=== PATIENT | male | born 2000 | race Caucasian/White ===

== ENCOUNTER 2021-04-15 23:45 | Inpatient (IN) | payer MEDICAID ==
[~2021-04-15] VITALS: Ht 170.2 cm; Wt 93.9 kg
[2021-04-16] VITALS (79 sets, daily range): BP systolic 97–140; BP diastolic 58–92
[2021-04-16] MEDS ORDERED: NALOXONE HCL 1 MG/ML 2ML VIAL IV ONE
[2021-04-16] MEDS ORDERED: PIPERACILLIN/TAZ 3.375G PREMIX 50 ML IV ONE (00:15)
[2021-04-16] MEDS ORDERED: NALOXONE HCL 0.4 MG/ML 1ML VIAL IV ONE (00:15)
[2021-04-16] MEDS ORDERED: SODIUM CHLORIDE 0.9% 1000ML BAG (SEPSIS BOLUS) IV ONE (00:15)
[2021-04-16] MEDS ORDERED: SUCCINYLCHOLINE CHLORIDE 200MG/10ML IV ONE ×2 (00:15→10:07)
[2021-04-16] MEDS ORDERED: PROPOFOL 10MG/ML 100ML 100 ML IV SCH (00:15)
[2021-04-16] MEDS ORDERED: ETOMIDATE 2MG/ML 10ML VIAL IV ONE ×2 (00:15→10:07)
[2021-04-16] MEDS ORDERED: VANCOMYCIN 1 G PREMIX 200 ML IV ONE (00:15)
[2021-04-16 01:11] LABS: BG BASE EXCESS -0.3 mmol/L (-2.0-2.0); BG CARBOXYHEMOGLOBIN 0.3 % (0.5-1.5); BG DEOXYHEMOGLOBIN 1.1 % (0.0-5.0); BG FRACTION INSPIRED OXYGEN 50; BG HCO3 ACT 23.8 mmol/L (22.0-26.0); BG METHEMOGLOBIN 0.3 % (0.0-1.5); BG OXYGEN SATURATION 98.9 % (92.0-98.5); BG OXYHEMOGLOBIN 98.3 % (94.0-97.0); BG PCO2 37.2 mmHg (35.0-45.0); BG PH 7.424 (7.350-7.450); BG PO2 183.6 mmHg (75.0-100.0); BG SAMPLE SITE RIGHT RADIAL; BG TOTAL HEMOGLOBIN 12.3 g/dL (12.0-18.0)
[2021-04-16 01:11] LABS: CHLORIDE 116 mEq/L (98-107); CREATINE KINASE 229 IU/L (39-308); ETHANOL BLOOD 159 mg/dL; RED BLOOD CELL COUNT 5.21 mill/uL (4.7-6.1)
[2021-04-16 01:12] LABS: HEMATOCRIT. 47.9 % (42.0-52.0); MEAN CORPUSCULAR HEMOGLOBIN 30.8 pg (28.0-32.0); MEAN PLATELET VOLUME 8.9 fl (7.4-10.4); NEUTROPHILS % 77.8 % (40.0-76.0); PLATELET 221 x1000/uL (130-400); RED CELL DISTRIBUTION WIDTH 14.4 % (11.6-14.6)
[2021-04-16 01:13] LABS: BASOPHILS % 0.4 % (0.0-2.0); EOSINOPHILS % 0.5 % (0.0-5.0); MONOCYTES % 7.3 % (2.0-8.0)
[2021-04-16 01:17] LABS: CLARITY URINE CLEAR (CLEAR); COLOR URINE YELLOW (YELLOW)
[2021-04-16 01:18] LABS: KETONES URINE NEGATIVE (NEGATIVE); LEUKOCYTE ESTERASE URINE NEGATIVE (NEGATIVE); NITRITE URINE NEGATIVE (NEGATIVE); OCCULT BLOOD URINE 1+ (NEGATIVE); PROTEIN URINE 2+ (NEGATIVE); SPECIFIC GRAVITY URINE 1.013 (1.005-1.030); UROBILINOGEN URINE 0.2 E.U./dL (0.2-1.0)
[2021-04-16 01:24] LABS: PROTHROMBIN TIME 11.1 sec (9.6-11.0)
[2021-04-16 01:28] LABS: *AMPHETAMINES SCREEN URINE NEGATIVE (NEGATIVE); *BARBITURATES SCREEN URINE NEGATIVE (NEGATIVE); *BENZODIAZEPINES SCREEN URINE NEGATIVE (NEGATIVE); *COCAINE SCREEN URINE NEGATIVE (NEGATIVE); METHADONE URINE SCREEN NEGATIVE (NEGATIVE)
[2021-04-16 01:29] LABS: CANNABINOID URINE SCREEN PRESUMTIVE POSITIVE (NEGATIVE); OPIATES URINE SCREEN NEGATIVE (NEGATIVE); PHENCYCLIDINE URINE SCREEN NEGATIVE (NEGATIVE)
[2021-04-16 01:57] LABS: BG VENT MODE VENT - AC
[2021-04-16] MEDS: FENTANYL CITRATE 2,500 MCG in SODIUM CHLORIDE 0.9% 200 ML IV PRN (02:21)
[2021-04-16] MEDS ORDERED: ONDANSETRON HCL 4MG/2ML INJ IV PRN (04:15)
[2021-04-16] MEDS ORDERED: PROPOFOL 10MG/ML 100ML 100 ML IV PRN (04:15)
[2021-04-16 04:36] LABS: BG BASE EXCESS -6.9 mmol/L (-2.0-2.0); BG CARBOXYHEMOGLOBIN 0.4 % (0.5-1.5); BG DEOXYHEMOGLOBIN 0.6 % (0.0-5.0); BG FRACTION INSPIRED OXYGEN 100; BG HCO3 ACT 18.6 mmol/L (22.0-26.0); BG METHEMOGLOBIN 0.5 % (0.0-1.5); BG OXYGEN SATURATION 99.4 % (92.0-98.5); BG OXYHEMOGLOBIN 98.5 % (94.0-97.0); BG PCO2 37.6 mmHg (35.0-45.0); BG PH 7.313 (7.350-7.450); BG PO2 246.4 mmHg (75.0-100.0); BG SAMPLE SITE LEFT BRACHIAL; BG VENT MODE VENT - AC
[2021-04-16] MEDS: PROPOFOL 10MG/ML 100ML 100 ML IV PRN ×6 (05:43→21:12)
[2021-04-16] MEDS: DEXT 5%/0.45% NACL KCL 20MEQ/L 1,000 ML IV SCH ×3 (05:44→21:49)
[2021-04-16 05:56] LABS: BASOPHILS % 0.1 % (0.0-2.0); HEMATOCRIT. 43.8 % (42.0-52.0); HEMOGLOBIN. 14.6 g/dL (14.0-18.0); LYMPHOCYTES % 12.2 % (20.0-50.0); MEAN CORPUSCULAR HEMOGLOBIN 30.4 pg (28.0-32.0); MEAN CORPUSCULAR VOLUME 91.4 fL (80.0-94.0); MEAN PLATELET VOLUME 8.6 fl (7.4-10.4); MONOCYTES % 8.8 % (2.0-8.0); NEUTROPHILS % 78.9 % (40.0-76.0); PLATELET 206 x1000/uL (130-400); RED CELL DISTRIBUTION WIDTH 14.4 % (11.6-14.6)
[2021-04-16 06:01] LABS: CHLORIDE 116 mEq/L (98-107)
[2021-04-16 06:08] LABS: PHOSPHORUS 2.7 mg/dL (2.5-4.9)
[2021-04-16] MEDS ORDERED: LIDOCAINE HCL 1% 20ML VIAL (Pyxis) INJ ONE (08:11)
[2021-04-16] MEDS: PANTOPRAZOLE SODIUM 40 MG/VIAL IV SCH (09:51)
[2021-04-16] MEDS: PIPERACILLIN/TAZOBACTAM 3.375 G in DEXTROSE 5% WATER 50 ML IV SCH ×3 (09:51→19:38)
[2021-04-16] MEDS: MIDAZOLAM HCL 100 MG in SODIUM CHLORIDE 0.9% 80 ML IV PRN (10:02)
[2021-04-16] MEDS ORDERED: NALOXONE HCL 0.4 MG/ML 1ML VIAL ONE (10:49)
[2021-04-16] MEDS ORDERED: ENOXAPARIN 40MG/0.4ML SYR SUBCUT SCH (12:00)
[2021-04-16] MEDS: LACTULOSE 20G/30ML UDC PO SCH ×2 (14:10→21:48)
[2021-04-16] MEDS: IPRATROPIUM/ALBUTEROL 0.5-3(2.5)MG/3ML NEB HHN SCH (16:05)
[2021-04-16] MEDS ORDERED: NOREPINEPHRINE 8 MG in DEXT 5% WATER 242 ML IV PRN (21:00)
[2021-04-16] MEDS ORDERED: PHENYLEPHRINE 100 MG in DEXT 5% WATER 240 ML IV PRN (21:00)
[2021-04-17] VITALS (94 sets, daily range): BP systolic 84–160; BP diastolic 25–108
[2021-04-17] MEDS: IPRATROPIUM/ALBUTEROL 0.5-3(2.5)MG/3ML NEB HHN SCH ×4 (00:09→23:45)
[2021-04-17] MEDS: PROPOFOL 10MG/ML 100ML 100 ML IV PRN ×5 (01:11→20:41)
[2021-04-17] MEDS: PIPERACILLIN/TAZOBACTAM 3.375 G in DEXTROSE 5% WATER 50 ML IV SCH ×4 (01:56→20:15)
[2021-04-17] MEDS: FENTANYL CITRATE 2,500 MCG in SODIUM CHLORIDE 0.9% 200 ML IV PRN (02:36)
[2021-04-17] MEDS: DEXT 5%/0.45% NACL KCL 20MEQ/L 1,000 ML IV SCH (05:22)
[2021-04-17 05:23] LABS: BASOPHILS % 0.4 % (0.0-2.0); HEMOGLOBIN. 12.7 g/dL (14.0-18.0); LYMPHOCYTES % 26.6 % (20.0-50.0); MEAN CORPUSCULAR HEMOGLOBIN 30.8 pg (28.0-32.0); MEAN PLATELET VOLUME 8.8 fl (7.4-10.4); MONOCYTES % 11.7 % (2.0-8.0); NEUTROPHILS % 58.3 % (40.0-76.0); PLATELET 157 x1000/uL (130-400); RED BLOOD CELL COUNT 4.13 mill/uL (4.7-6.1); RED CELL DISTRIBUTION WIDTH 14.4 % (11.6-14.6)
[2021-04-17 05:25] LABS: CHLORIDE 112 mEq/L (98-107)
[2021-04-17] MEDS: LACTULOSE 20G/30ML UDC PO SCH ×3 (05:37→21:31)
[2021-04-17] MEDS: MIDAZOLAM HCL 100 MG in SODIUM CHLORIDE 0.9% 80 ML IV PRN ×2 (06:03→23:09)
[2021-04-17 07:52] LABS: BG BASE EXCESS -2.2 mmol/L (-2.0-2.0); BG CARBOXYHEMOGLOBIN 0.7 % (0.5-1.5); BG DEOXYHEMOGLOBIN 4.9 % (0.0-5.0); BG FRACTION INSPIRED OXYGEN 30; BG METHEMOGLOBIN 0.3 % (0.0-1.5); BG OXYGEN SATURATION 95.1 % (92.0-98.5); BG OXYHEMOGLOBIN 94.1 % (94.0-97.0); BG PH 7.367 (7.350-7.450); BG PO2 75.8 mmHg (75.0-100.0); BG SAMPLE SITE RIGHT RADIAL; BG TOTAL HEMOGLOBIN 13.6 g/dL (12.0-18.0); BG VENT MODE VENT - AC
[2021-04-17] MEDS: LEVETIRACETAM 500MG TABLET PO SCH ×2 (08:57→21:30)
[2021-04-17] MEDS: LORAZEPAM 2MG/ML CPJ IV PRN ×4 (09:07→21:29)
[2021-04-17] MEDS ORDERED: METOPROLOL TARTRATE 25MG TABLET PO ONE (09:15)
[2021-04-17] MEDS: PANTOPRAZOLE SODIUM 40 MG/VIAL IV SCH (09:23)
[2021-04-17] MEDS: METOPROLOL TARTRATE 25MG TABLET PO SCH ×2 (09:30→21:30)
[2021-04-17] MEDS ORDERED: FOLIC ACID 1 MG, THIAMINE HCL 100 MG, MVI, ADULT NO.1 10 ML in DEXTROSE 5% WATER 1,000 ML IV ONE (09:30)
[2021-04-17] MEDS ORDERED: ENOXAPARIN 40MG/0.4ML SYR SUBCUT SCH (12:00)
[2021-04-17] MEDS: CHLORDIAZEPOXIDE 25MG CAPSULE PO SCH ×2 (13:11→21:30)
[2021-04-18] VITALS (93 sets, daily range): BP systolic 84–184; BP diastolic 43–150
[2021-04-18] MEDS: PROPOFOL 10MG/ML 100ML 100 ML IV PRN ×4 (01:31→20:34)
[2021-04-18] MEDS: PIPERACILLIN/TAZOBACTAM 3.375 G in DEXTROSE 5% WATER 50 ML IV SCH ×4 (02:12→20:39)
[2021-04-18] MEDS: FENTANYL CITRATE 2,500 MCG in SODIUM CHLORIDE 0.9% 200 ML IV PRN (03:19)
[2021-04-18] MEDS: LORAZEPAM 2MG/ML CPJ IV PRN ×5 (05:35→22:37)
[2021-04-18] MEDS: LACTULOSE 20G/30ML UDC PO SCH ×2 (05:35→10:10)
[2021-04-18] MEDS: CHLORDIAZEPOXIDE 25MG CAPSULE PO SCH ×3 (05:35→22:37)
[2021-04-18 05:37] LABS: BASOPHILS % 0.3 % (0.0-2.0); EOSINOPHILS % 3.1 % (0.0-5.0); HEMATOCRIT. 39.3 % (42.0-52.0); HEMOGLOBIN. 13.4 g/dL (14.0-18.0); LYMPHOCYTES % 16.6 % (20.0-50.0); MEAN CORPUSCULAR HEMOGLOBIN 30.4 pg (28.0-32.0); MEAN CORPUSCULAR VOLUME 89.3 fL (80.0-94.0); MONOCYTES % 11.5 % (2.0-8.0); NEUTROPHILS % 68.5 % (40.0-76.0); PLATELET 174 x1000/uL (130-400)
[2021-04-18 05:40] LABS: CHLORIDE 108 mEq/L (98-107)
[2021-04-18] MEDS: MIDAZOLAM HCL 100 MG in SODIUM CHLORIDE 0.9% 80 ML IV PRN (07:43)
[2021-04-18 08:07] LABS: BG BASE EXCESS 1.7 mmol/L (-2.0-2.0); BG CARBOXYHEMOGLOBIN 0.7 % (0.5-1.5); BG FRACTION INSPIRED OXYGEN 30; BG HCO3 ACT 26.6 mmol/L (22.0-26.0); BG METHEMOGLOBIN 0.4 % (0.0-1.5); BG OXYHEMOGLOBIN 95.9 % (94.0-97.0); BG PCO2 42.5 mmHg (35.0-45.0); BG PH 7.414 (7.350-7.450); BG PO2 88.3 mmHg (75.0-100.0); BG SAMPLE SITE RIGHT RADIAL; BG TOTAL HEMOGLOBIN 14.4 g/dL (12.0-18.0); BG VENT MODE VENT - AC
[2021-04-18] MEDS: METOPROLOL TARTRATE 25MG TABLET PO SCH ×2 (08:27→20:36)
[2021-04-18] MEDS: PANTOPRAZOLE SODIUM 40 MG/VIAL IV SCH (08:27)
[2021-04-18] MEDS: LEVETIRACETAM 500MG TABLET PO SCH ×2 (08:27→20:37)
[2021-04-18] MEDS: ENOXAPARIN 40MG/0.4ML SYR SUBCUT SCH (08:28)
[2021-04-18] MEDS: IPRATROPIUM/ALBUTEROL 0.5-3(2.5)MG/3ML NEB HHN SCH ×2 (09:25→15:50)
[2021-04-18] MEDS ORDERED: POTASSIUM CHLORIDE 20MEQ TABLET SR PO SCH (10:00)
[2021-04-18] MEDS: FOLIC ACID 1 MG, THIAMINE HCL 100 MG, MVI, ADULT NO.1 10 ML in DEXTROSE 5% WATER 1,000 ML IV SCH (12:36)
[2021-04-18 14:58] LABS: BG BASE EXCESS 3.3 mmol/L (-2.0-2.0); BG CARBOXYHEMOGLOBIN 0.9 % (0.5-1.5); BG HCO3 ACT 27.5 mmol/L (22.0-26.0); BG METHEMOGLOBIN 0.3 % (0.0-1.5); BG OXYHEMOGLOBIN 94.8 % (94.0-97.0); BG PCO2 40.7 mmHg (35.0-45.0); BG PH 7.448 (7.350-7.450); BG PO2 77.4 mmHg (75.0-100.0); BG SAMPLE SITE RIGHT RADIAL; BG TOTAL HEMOGLOBIN 15.1 g/dL (12.0-18.0); BG VENT MODE VENT - CPAP
[2021-04-18] MEDS ORDERED: ONDANSETRON HCL 4MG/2ML INJ IM NR (15:30)
[2021-04-18] MEDS: METOCLOPRAMIDE HCL 10MG/2ML VIAL IV SCH (17:32)
[2021-04-18] MEDS: DEXT 5%/0.45% NACL 1000ML 1,000 ML IV SCH (20:44)
[2021-04-19] VITALS (86 sets, daily range): BP systolic 83–141; BP diastolic 34–94
[2021-04-19] MEDS: METOCLOPRAMIDE HCL 10MG/2ML VIAL IV SCH ×4 (00:19→17:46)
[2021-04-19] MEDS: IPRATROPIUM/ALBUTEROL 0.5-3(2.5)MG/3ML NEB HHN SCH ×4 (00:25→14:25)
[2021-04-19] MEDS: PIPERACILLIN/TAZOBACTAM 3.375 G in DEXTROSE 5% WATER 50 ML IV SCH ×4 (02:08→19:55)
[2021-04-19] MEDS: MIDAZOLAM HCL 100 MG in SODIUM CHLORIDE 0.9% 80 ML IV PRN ×2 (02:10→13:24)
[2021-04-19] MEDS: PROPOFOL 10MG/ML 100ML 100 ML IV PRN ×6 (02:12→21:56)
[2021-04-19] MEDS: FENTANYL CITRATE 2,500 MCG in SODIUM CHLORIDE 0.9% 200 ML IV PRN (04:24)
[2021-04-19] MEDS: CHLORDIAZEPOXIDE 25MG CAPSULE PO SCH ×3 (05:57→21:13)
[2021-04-19] MEDS: DEXT 5%/0.45% NACL 1000ML 1,000 ML IV SCH ×3 (06:26→23:42)
[2021-04-19 08:20] LABS: BG BASE EXCESS 5.9 mmol/L (-2.0-2.0); BG CARBOXYHEMOGLOBIN 0.6 % (0.5-1.5); BG DEOXYHEMOGLOBIN 5.5 % (0.0-5.0); BG FRACTION INSPIRED OXYGEN 30; BG HCO3 ACT 30.8 mmol/L (22.0-26.0); BG METHEMOGLOBIN 0.4 % (0.0-1.5); BG OXYGEN SATURATION 94.4 % (92.0-98.5); BG OXYHEMOGLOBIN 93.5 % (94.0-97.0); BG PCO2 45.4 mmHg (35.0-45.0); BG PH 7.449 (7.350-7.450); BG SAMPLE SITE RIGHT RADIAL; BG TOTAL HEMOGLOBIN 13.7 g/dL (12.0-18.0); BG VENT MODE VENT - AC
[2021-04-19] MEDS: LACTULOSE 20G/30ML UDC PO SCH (09:00)
[2021-04-19] MEDS: METOPROLOL TARTRATE 25MG TABLET PO SCH ×2 (09:00→20:01)
[2021-04-19] MEDS: ENOXAPARIN 40MG/0.4ML SYR SUBCUT SCH (09:41)
[2021-04-19] MEDS: LEVETIRACETAM 500MG TABLET PO SCH ×2 (09:41→20:01)
[2021-04-19] MEDS: FOLIC ACID 1 MG, THIAMINE HCL 100 MG, MVI, ADULT NO.1 10 ML in DEXTROSE 5% WATER 1,000 ML IV SCH (09:41)
[2021-04-19] MEDS: PANTOPRAZOLE SODIUM 40 MG/VIAL IV SCH (09:41)
[2021-04-19 09:50] LABS: BASOPHILS % 0.3 % (0.0-2.0); EOSINOPHILS % 4.3 % (0.0-5.0); HEMATOCRIT. 38.4 % (42.0-52.0); HEMOGLOBIN. 13.3 g/dL (14.0-18.0); LYMPHOCYTES % 14.5 % (20.0-50.0); MEAN CORPUSCULAR HEMOGLOBIN 31.2 pg (28.0-32.0); MEAN PLATELET VOLUME 8.3 fl (7.4-10.4); NEUTROPHILS % 68.9 % (40.0-76.0); PLATELET 144 x1000/uL (130-400); RED BLOOD CELL COUNT 4.27 mill/uL (4.7-6.1); RED CELL DISTRIBUTION WIDTH 13.9 % (11.6-14.6)
[2021-04-19 09:58] LABS: CHLORIDE 108 mEq/L (98-107)
[2021-04-19] MEDS ORDERED: POTASSIUM CHLORIDE 20MEQ/PACKET PO NR (12:00)
[2021-04-19] MEDS: ACETAMINOPHEN 650MG/20.3ML UDC PO PRN (19:55)
[2021-04-19] MEDS: QUETIAPINE FUMARATE 50MG TABLET PO SCH (20:01)
[2021-04-20] VITALS (49 sets, daily range): BP systolic 84–158; BP diastolic 33–135
[2021-04-20] MEDS: METOCLOPRAMIDE HCL 10MG/2ML VIAL IV SCH ×4 (00:19→17:04)
[2021-04-20] MEDS: PIPERACILLIN/TAZOBACTAM 3.375 G in DEXTROSE 5% WATER 50 ML IV SCH ×4 (01:26→20:02)
[2021-04-20] MEDS: PROPOFOL 10MG/ML 100ML 100 ML IV PRN ×2 (02:14→05:48)
[2021-04-20] MEDS: CHLORDIAZEPOXIDE 25MG CAPSULE PO SCH ×3 (05:09→21:04)
[2021-04-20] MEDS: ACETAMINOPHEN 650MG/20.3ML UDC PO PRN (05:13)
[2021-04-20 05:47] LABS: CHLORIDE 104 mEq/L (98-107)
[2021-04-20 05:54] LABS: BASOPHILS % 0.4 % (0.0-2.0); EOSINOPHILS % 0.2 % (0.0-5.0); HEMOGLOBIN. 11.6 g/dL (14.0-18.0); LYMPHOCYTES % 17.1 % (20.0-50.0); MEAN PLATELET VOLUME 9.1 fl (7.4-10.4); MONOCYTES % 11.2 % (2.0-8.0); NEUTROPHILS % 71.1 % (40.0-76.0); PLATELET 278 x1000/uL (130-400); RED BLOOD CELL COUNT 3.76 mill/uL (4.7-6.1); RED CELL DISTRIBUTION WIDTH 15.9 % (11.6-14.6)
[2021-04-20] MEDS: LACTULOSE 20G/30ML UDC PO SCH (08:35)
[2021-04-20] MEDS: PANTOPRAZOLE SODIUM 40 MG/VIAL IV SCH (08:36)
[2021-04-20] MEDS: FOLIC ACID 1 MG, THIAMINE HCL 100 MG, MVI, ADULT NO.1 10 ML in DEXTROSE 5% WATER 1,000 ML IV SCH (08:36)
[2021-04-20] MEDS: QUETIAPINE FUMARATE 50MG TABLET PO SCH ×2 (08:36→20:02)
[2021-04-20] MEDS: LEVETIRACETAM 500MG TABLET PO SCH ×2 (08:36→20:02)
[2021-04-20] MEDS: ENOXAPARIN 40MG/0.4ML SYR SUBCUT SCH (08:37)
[2021-04-20] MEDS: METOPROLOL TARTRATE 25MG TABLET PO SCH ×2 (08:37→20:02)
[2021-04-20] MEDS: FENTANYL CITRATE 2,500 MCG in SODIUM CHLORIDE 0.9% 200 ML IV PRN (08:38)
[2021-04-20] MEDS: IPRATROPIUM/ALBUTEROL 0.5-3(2.5)MG/3ML NEB HHN SCH ×3 (08:58→20:01)
[2021-04-20] MEDS ORDERED: POTASSIUM CHLORIDE 20MEQ TABLET SR PO NR (09:00)
[2021-04-20 09:05] LABS: BG BASE EXCESS 3.5 mmol/L (-2.0-2.0); BG CARBOXYHEMOGLOBIN 0.8 % (0.5-1.5); BG DEOXYHEMOGLOBIN 1.9 % (0.0-5.0); BG FRACTION INSPIRED OXYGEN 35; BG HCO3 ACT 28.8 mmol/L (22.0-26.0); BG METHEMOGLOBIN 0.4 % (0.0-1.5); BG OXYGEN SATURATION 98.1 % (92.0-98.5); BG OXYHEMOGLOBIN 96.9 % (94.0-97.0); BG PH 7.414 (7.350-7.450); BG PO2 103.4 mmHg (75.0-100.0); BG SAMPLE SITE RIGHT RADIAL; BG TOTAL HEMOGLOBIN 14.2 g/dL (12.0-18.0); BG VENT MODE VENT - AC
[2021-04-20 10:31] LABS: BG CARBOXYHEMOGLOBIN 0.4 % (0.5-1.5); BG DEOXYHEMOGLOBIN 2.8 % (0.0-5.0); BG FRACTION INSPIRED OXYGEN 35; BG HCO3 ACT 28.7 mmol/L (22.0-26.0); BG METHEMOGLOBIN 0.4 % (0.0-1.5); BG OXYGEN SATURATION 97.2 % (92.0-98.5); BG OXYHEMOGLOBIN 96.4 % (94.0-97.0); BG PCO2 43.5 mmHg (35.0-45.0); BG PH 7.437 (7.350-7.450); BG PO2 91.6 mmHg (75.0-100.0); BG SAMPLE SITE RIGHT RADIAL; BG TOTAL HEMOGLOBIN 13.7 g/dL (12.0-18.0); BG VENT MODE VENT - CPAP
[2021-04-20] MEDS: DEXT 5%/0.45% NACL 1000ML 1,000 ML IV SCH ×2 (13:00→20:31)
[2021-04-20] MEDS: LORAZEPAM 2MG/ML CPJ IV PRN (13:50)
[2021-04-21] VITALS (31 sets, daily range): BP systolic 105–156; BP diastolic 31–102
[2021-04-21] MEDS: PIPERACILLIN/TAZOBACTAM 3.375 G in DEXTROSE 5% WATER 50 ML IV SCH (02:52)
[2021-04-21] MEDS: CHLORDIAZEPOXIDE 25MG CAPSULE PO SCH ×2 (05:40→14:44)
[2021-04-21 05:46] LABS: CHLORIDE 109 mEq/L (98-107)
[2021-04-21 05:58] LABS: BASOPHILS % 0.6 % (0.0-2.0); EOSINOPHILS % 4.5 % (0.0-5.0); HEMATOCRIT. 39.1 % (42.0-52.0); HEMOGLOBIN. 13.2 g/dL (14.0-18.0); LYMPHOCYTES % 12.4 % (20.0-50.0); MEAN CORPUSCULAR HEMOGLOBIN 30.6 pg (28.0-32.0); MEAN PLATELET VOLUME 8.2 fl (7.4-10.4); NEUTROPHILS % 71.5 % (40.0-76.0); PLATELET 241 x1000/uL (130-400)
[2021-04-21] MEDS: IPRATROPIUM/ALBUTEROL 0.5-3(2.5)MG/3ML NEB HHN SCH ×2 (08:13→15:23)
[2021-04-21] MEDS: LACTULOSE 20G/30ML UDC PO SCH (08:54)
[2021-04-21] MEDS: LORAZEPAM 2MG/ML CPJ IV PRN (08:54)
[2021-04-21] MEDS: PANTOPRAZOLE SODIUM 40 MG/VIAL IV SCH (08:54)
[2021-04-21] MEDS: LEVETIRACETAM 500MG TABLET PO SCH ×2 (08:55→21:10)
[2021-04-21] MEDS: METOPROLOL TARTRATE 25MG TABLET PO SCH ×2 (08:55→21:11)
[2021-04-21] MEDS: QUETIAPINE FUMARATE 50MG TABLET PO SCH ×2 (08:55→21:10)
[2021-04-21] MEDS: ENOXAPARIN 30MG/0.3ML SYR SUBCUT SCH ×2 (08:55→21:10)
[2021-04-21] MEDS: FOLIC ACID 1 MG, THIAMINE HCL 100 MG, MVI, ADULT NO.1 10 ML in DEXTROSE 5% WATER 1,000 ML IV SCH (08:56)
[2021-04-21] MEDS: DEXT 5%/0.45% NACL 1000ML 1,000 ML IV SCH ×2 (08:56→18:14)
[2021-04-21] MEDS: CHLORDIAZEPOXIDE 10MG CAPSULE PO SCH (21:10)
[2021-04-22] VITALS (16 sets, daily range): BP systolic 91–137; BP diastolic 25–92
[2021-04-22] MEDS: IPRATROPIUM/ALBUTEROL 0.5-3(2.5)MG/3ML NEB HHN SCH ×3 (00:32→10:15)
[2021-04-22] MEDS: DEXT 5%/0.45% NACL 1000ML 1,000 ML IV SCH (04:39)
[2021-04-22] MEDS: CHLORDIAZEPOXIDE 10MG CAPSULE PO SCH ×2 (05:15→14:02)
[2021-04-22] MEDS: ENOXAPARIN 30MG/0.3ML SYR SUBCUT SCH ×2 (09:17→20:54)
[2021-04-22] MEDS: PANTOPRAZOLE SODIUM 40 MG/VIAL IV SCH (09:17)
[2021-04-22] MEDS: LEVETIRACETAM 500MG TABLET PO SCH ×2 (09:17→20:54)
[2021-04-22] MEDS: QUETIAPINE FUMARATE 50MG TABLET PO SCH ×2 (09:18→20:54)
[2021-04-22] MEDS: METOPROLOL TARTRATE 25MG TABLET PO SCH ×2 (09:18→20:54)
[2021-04-22] MEDS: LACTULOSE 20G/30ML UDC PO SCH (09:19)
[2021-04-22] MEDS: FOLIC ACID 1 MG, THIAMINE HCL 100 MG, MVI, ADULT NO.1 10 ML in DEXTROSE 5% WATER 1,000 ML IV SCH (10:24)
[2021-04-22] MEDS: ACETAMINOPHEN 650MG/20.3ML UDC PO PRN (10:35)
[2021-04-22 22:14] LABS: T4 FREE 0.81 ng/dL (0.76-1.46)
[2021-04-22 22:41] LABS: VITAMIN B12 SERUM 433 pg/mL (211-911)
[2021-04-22 22:43] LABS: FOLIC ACID (FOLATE) SERUM > 20.00 ng/mL (>5.38)
[2021-04-23] VITALS (14 sets, daily range): BP systolic 82–136; BP diastolic 43–84
[2021-04-23] MEDS: DEXT 5%/0.45% NACL 1000ML 1,000 ML IV SCH (00:13)
[2021-04-23 07:10] LABS: BASOPHILS % 0.6 % (0.0-2.0); HEMATOCRIT. 43.1 % (42.0-52.0); HEMOGLOBIN. 14.4 g/dL (14.0-18.0); LYMPHOCYTES % 20.6 % (20.0-50.0); MEAN CORPUSCULAR HEMOGLOBIN 30.3 pg (28.0-32.0); MEAN CORPUSCULAR VOLUME 90.8 fL (80.0-94.0); MEAN PLATELET VOLUME 8.2 fl (7.4-10.4); MONOCYTES % 13.6 % (2.0-8.0); NEUTROPHILS % 60.2 % (40.0-76.0); PLATELET 284 x1000/uL (130-400); RED BLOOD CELL COUNT 4.74 mill/uL (4.7-6.1)
[2021-04-23 07:31] LABS: CHLORIDE 108 mEq/L (98-107)
[2021-04-23] MEDS: IPRATROPIUM/ALBUTEROL 0.5-3(2.5)MG/3ML NEB HHN SCH ×2 (08:25→15:53)
[2021-04-23] MEDS: QUETIAPINE FUMARATE 50MG TABLET PO SCH (08:50)
[2021-04-23] MEDS: LEVETIRACETAM 500MG TABLET PO SCH (08:50)
[2021-04-23] MEDS: METOPROLOL TARTRATE 25MG TABLET PO SCH (08:50)
[2021-04-23] MEDS: LACTULOSE 20G/30ML UDC PO SCH (08:50)
[2021-04-23] MEDS: FOLIC ACID 1 MG, THIAMINE HCL 100 MG, MVI, ADULT NO.1 10 ML in DEXTROSE 5% WATER 1,000 ML IV SCH (08:50)
[2021-04-23] MEDS: PANTOPRAZOLE SODIUM 40 MG/VIAL IV SCH (08:50)
[2021-04-23] MEDS: ENOXAPARIN 30MG/0.3ML SYR SUBCUT SCH (08:51)
[2021-04-23] MEDS ORDERED: POTASSIUM CHLORIDE 20MEQ TABLET SR PO NR (10:30)
[2021-04-23] MEDS ORDERED: CHLORDIAZEPOXIDE 10MG CAPSULE PO SCH (13:00)
[2021-04-24] MEDS ORDERED: KEPP500 MT (17:10)
[2021-04-24] MEDS ORDERED: CHLO5CAP3 MT (17:14)
== END 2021-04-23 17:15 | disposition left against medical advice (07) | DRG 720 ==
LOC: ER 23:57 → CVICU 04-16 01:37 → ENRESERV 04-16 02:20 → 5EST 04-21 22:06
PROVIDERS: ADMIT Internal Medicine; ATTEND Internal Medicine
PROC: 5A1955Z Respiratory Ventilation, Greater than 96 Consecutive Hours (ICD-10-PCS; principal; 2021-04-16)
PROC: 02HV33Z Insertion of Infusion Device into Superior Vena Cava, Percutaneous Approach (ICD-10-PCS; 2021-04-16)
PROC: B548ZZA Ultrasonography of Superior Vena Cava, Guidance (ICD-10-PCS; 2021-04-16)
PROC: 0BH17EZ Insertion of Endotracheal Airway into Trachea, Via Natural or Artificial Opening (ICD-10-PCS; 2021-04-16)
DX: A41.9 Sepsis, unspecified organism (principal); J96.01 Acute respiratory failure with hypoxia; J69.0 Pneumonitis due to inhalation of food and vomit; G92 Toxic encephalopathy; E72.20 Disorder of urea cycle metabolism, unspecified; E87.2 Acidosis; R74.01 Elevation of levels of liver transaminase levels; F12.10 Cannabis abuse, uncomplicated; T65.91XA Toxic effect of unspecified substance, accidental (unintentional), initial encounter; F10.239 Alcohol dependence with withdrawal, unspecified; E87.8 Other disorders of electrolyte and fluid balance, not elsewhere classified; Y90.6 Blood alcohol level of 120-199 mg/100 ml; Z71.51 Drug abuse counseling and surveillance of drug abuser; Z78.1 Physical restraint status; Z71.41 Alcohol abuse counseling and surveillance of alcoholic; Y92.89 Other specified places as the place of occurrence of the external cause
CPT/HCPCS: 36415; 36600; 70551; 71045; 76700; 76937; 80048; 80053; 80305; 80307; 80320; 80329; 81003; 82140; 82375; 82390; 82550; 82607; 82746; 82805; 82962; 83036; 83605; 83615; 83735; 83880; 84100; 84145; 84439; 84443; 84478; 84481; 84484; 85025; 87070; 92610; 93005; 93970; 94002; 94003; 94640; 97116; 97162; 97166; 97530; 99291; C1725; C1769; C9113; J0330; J1650; J2060; J2250; J2310; J2405; J2543; J2704; J2765; J3010; J3370; J3411; J3490; J7030; J7050; J7060; J7070; G0480

== ENCOUNTER 2021-04-24 13:19 | Emergency (ER) | payer MEDICAID, OTHER ==
[~2021-04-24] VITALS: Ht 177.8 cm; Wt 86.0 kg
[2021-04-24] MEDS ORDERED: CHLORDIAZEPOXIDE 25MG CAPSULE PO ONE (14:45)
[2021-04-24 14:54] LABS: BASOPHILS % 0.5 % (0.0-2.0); EOSINOPHILS % 2.9 % (0.0-5.0); HEMATOCRIT. 41.5 % (42.0-52.0); HEMOGLOBIN. 14.4 g/dL (14.0-18.0); LYMPHOCYTES % 20.6 % (20.0-50.0); MEAN CORPUSCULAR HEMOGLOBIN 31.1 pg (28.0-32.0); MEAN CORPUSCULAR VOLUME 89.6 fL (80.0-94.0); MEAN PLATELET VOLUME 8.6 fl (7.4-10.4); MONOCYTES % 12.4 % (2.0-8.0); NEUTROPHILS % 63.6 % (40.0-76.0); PLATELET 310 x1000/uL (130-400); RED BLOOD CELL COUNT 4.64 mill/uL (4.7-6.1); RED CELL DISTRIBUTION WIDTH 13.6 % (11.6-14.6)
[2021-04-24 14:56] LABS: CHLORIDE 113 mEq/L (98-107)
[2021-04-24 15:00] LABS: ETHANOL BLOOD < 10 mg/dL
[2021-04-24 15:22] LABS: CLARITY URINE CLEAR (CLEAR); COLOR URINE YELLOW (YELLOW); KETONES URINE 1+ (NEGATIVE); LEUKOCYTE ESTERASE URINE NEGATIVE (NEGATIVE); NITRITE URINE NEGATIVE (NEGATIVE); OCCULT BLOOD URINE NEGATIVE (NEGATIVE); PROTEIN URINE TRACE (NEGATIVE); SPECIFIC GRAVITY URINE 1.021 (1.005-1.030); UROBILINOGEN URINE 0.2 E.U./dL (0.2-1.0)
[2021-04-24 15:34] LABS: *AMPHETAMINES SCREEN URINE NEGATIVE (NEGATIVE); *BARBITURATES SCREEN URINE NEGATIVE (NEGATIVE); PHENCYCLIDINE URINE SCREEN NEGATIVE (NEGATIVE)
[2021-04-24 15:37] LABS: CANNABINOID URINE SCREEN PRESUMTIVE POSITIVE (NEGATIVE); METHADONE URINE SCREEN NEGATIVE (NEGATIVE)
[2021-04-24 15:38] LABS: *COCAINE SCREEN URINE NEGATIVE (NEGATIVE)
[2021-04-24 15:41] LABS: *BENZODIAZEPINES SCREEN URINE PRESUMTIVE POSITIVE (NEGATIVE); OPIATES URINE SCREEN NEGATIVE (NEGATIVE)
[2021-04-24] MEDS ORDERED: LEVETIRACETAM 500MG TABLET PO ONE (17:00)
[2021-04-24] MEDS ORDERED: POTASSIUM CHLORIDE 20MEQ TABLET SR PO ONE (17:00)
[2021-04-24] MEDS ORDERED: KEPP500 MT (17:10)
[2021-04-24] MEDS ORDERED: CHLO5CAP3 MT (17:14)
[2021-04-24] MEDS ORDERED: POTASSIUM CHLORIDE 20MEQ TABLET SR PO NR (17:30)
[2021-04-24 17:59] VITALS: BP 121/78
== END 2021-04-24 18:02 | disposition home or self-care (01) ==
LOC: ER 15:39
DX: G40.509 Epileptic seizures related to external causes, not intractable, without status epilepticus (principal); F12.10 Cannabis abuse, uncomplicated
CPT/HCPCS: 36415; 80053; 80305; 80320; 81003; 82962; 85025; 99285; G0480